=== PATIENT | male | born 1945 | race Caucasian/White ===

== ENCOUNTER 2019-12-14 19:55 | Emergency (ER) | payer MEDICARE, BC ==
[~2019-12-14] VITALS: Ht 182.9 cm; Wt 98.6 kg
[2019-12-14 20:09] VITALS: Ht 182.9 cm; Wt 98.6 kg
[2019-12-14] MEDS ORDERED: LIPITOR80 MG PO (20:10)
[2019-12-14] MEDS ORDERED: PRINIVIL10 MG PO (20:11)
[2019-12-14] MEDS ORDERED: TOPROL XL100 MG PO (20:11)
[2019-12-14] MEDS ORDERED: COUMADIN5 MG PO (20:11)
[2019-12-14] MEDS ORDERED: BAYER ASPIRIN325 MG (20:12)
[2019-12-14 21:30] LABS: BASOPHILS 0.3 % (0-2); EOSINOPHILS 0.5 % (0-7); HEMATOCRIT 45.6 % (42.0-54.0); HEMOGLOBIN 14.9 g/dL (13.5-17.5); IMMATURE GRANULOCYTES 0.2 % (0-5); LYMPHOCYTES 8.2 % (15-50); MCH 29.6 pg (26.0-34.0); MCHC 32.7 g/dL (31.0-37.0); MCV 90.7 fL (80.0-100.0); MEAN PLATELET VOLUME 10.1 fL (7.4-10.4); MONOCYTES 3.9 % (2-11); NEUTROPHILS 86.9 % (40-80); PLATELET COUNT 183 10x3/uL (130-400); RBC 5.03 10x6/uL (4.20-6.10); WBC 9.1 10x3/uL (4.8-10.8)
[2019-12-14 21:38] LABS: APTT 36.5 SECONDS (22.8-39.4); INR 2.26 (0.85-1.17); PROTIME 24.7 SECONDS (11.6-15.0)
[2019-12-14 21:41] LABS: ANION GAP 10.7 mmol/L (8-16); CALCIUM 8.9 mg/dL (8.5-10.1); CARBON DIOXIDE 27.8 mmol/L (21.0-32.0); CREATININE - SERUM 1.7 mg/dL (0.6-1.3); POTASSIUM - SERUM 4.5 mmol/L (3.5-5.1)
[2019-12-14 21:47] LABS: BILIRUBIN - TOTAL 0.87 mg/dL (0.2-1.3); PROTEIN - SERUM 7.3 g/dL (6.4-8.2)
[2019-12-14 23:42] LABS: GLUCOSE NEGATIVE (NEGATIVE); NITRITE NEGATIVE (NEGATIVE)
[2019-12-14 23:43] LABS: BILIRUBIN NEGATIVE (NEGATIVE); KETONE NEGATIVE (NEGATIVE); UROBILINOGEN NORMAL (NORMAL)
[2019-12-14 23:45] LABS: BACTERIA MODERATE /hpf (NEGATIVE); EPITHELIAL CELLS 0-5 /hpf (0-5); RED CELLS - URINE 25-50 /hpf (0-5); WHITE CELLS - URINE 0-5 /hpf (NEGATIVE); YEAST >1+ /hpf (NONE SEEN)
[2019-12-15] MEDS ORDERED: HYDROCODON-ACE1 EA10 PO (01:32)
[2019-12-15] MEDS ORDERED: FLOMAX0.4 MG PO (01:32)
[2019-12-15] MEDS ORDERED: OMNICEF300 MG PO (01:32)
[2019-12-15 02:59] VITALS: BP 147/74
== END 2019-12-15 03:00 | disposition home or self-care (01) ==
LOC: D.ER 19:55
PROVIDERS: Family Medicine
DX: N50.812 Left testicular pain (principal); N20.1 Calculus of ureter